=== PATIENT | female | born 1975 | race Caucasian/White ===

== ENCOUNTER 2016-12-22 22:06 | Emergency (ER) | payer SELFPAY ==
[~2016-12-22] VITALS: Ht 167.6 cm; Wt 71.2 kg
[2016-12-22 22:06] VITALS: BP 156/108; PULSE 87; RESP 16; TEMP 99.9; O2SAT 99
--- NOTE | 2016-12-22 22:06 | NUR ---
Placed in hallway. Report given to Kai TOPETE.
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
--- NOTE | 2016-12-22 22:18 | NUR ---
MD noble evaluating pt in the hallway
[2016-12-22 22:26] VITALS: BP 142/86; PULSE 86; RESP 17; TEMP 99.4; O2SAT 98
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
== END 2016-12-22 22:26 ==
LOC: SED 22:06
DX: Z02.89 Encounter for other administrative examinations (principal); S60.211A Contusion of right wrist, initial encounter; S60.212A Contusion of left wrist, initial encounter; F41.9 Anxiety disorder, unspecified; F32.9 Major depressive disorder, single episode, unspecified; Z90.710 Acquired absence of both cervix and uterus; Z98.890 Other specified postprocedural states; X58.XXXA Exposure to other specified factors, initial encounter; Y93.89 Activity, other specified; Y92.89 Other specified places as the place of occurrence of the external cause; Y99.8 Other external cause status
CPT/HCPCS: 99283

== ENCOUNTER 2017-06-03 12:34 | Inpatient (IN) | payer BC ==
[~2017-06-03] VITALS: Ht 167.6 cm; Wt 65.8 kg
[2017-06-03 12:45] VITALS: BP_SYST 118
[2017-06-03] MEDS ORDERED: ONDANSETRON HCL 4 MG/2 ML VIAL IVP ONE (13:15)
[2017-06-03] MEDS ORDERED: LORazepam 2 MG/ML VIAL (FOR ER USE) IVP ONE (13:15)
[2017-06-03 13:34] LABS: BASOPHILS % (AUTO) 0.7 % (0.0-2.0); EOSINOPHILS # (AUTO) 0.4 K/uL (0.0-0.4); EOSINOPHILS % (AUTO) 7.4 % (0.0-4.0); HEMATOCRIT 47.5 % (36-48); HEMOGLOBIN 15.5 g/dL (12.0-16.0); LYMPHOCYTES # (AUTO) 1.4 K/uL (1.0-5.5); LYMPHOCYTES % (AUTO) 23.2 % (20.5-51.5); MEAN CORPUSCULAR HEMOGLOBIN 32 pg (27-31); MEAN CORPUSCULAR HGB CONC 33 % (32-36); MEAN CORPUSCULAR VOLUME 98 fL (79.0-98.0); MONOCYTES # (AUTO) 0.4 K/uL (0.0-1.0); MONOCYTES % (AUTO) 6.1 % (1.7-9.3); NEUTROPHILS # (AUTO) 3.9 K/uL (1.8-7.7); NEUTROPHILS % (AUTO) 62.6 % (40.0-70.0); PLATELET COUNT (AUTO) 358 K/uL (130-430); RED BLOOD CELL COUNT(AUTO) 4.87 MIL/uL (4.2-6.2); RED CELL DISTRIBUTION WIDTH 13.7 % (9.0-15.0); WHITE BLOOD COUNT (AUTO) 6.1 K/uL (4.8-10.8)
[2017-06-03 13:47] LABS: CALCIUM 7.7 mg/dL (8.4-11.0); CREATININE 0.79 mg/dL (0.55-1.30); POTASSIUM 3.6 mmol/L (3.5-5.1)
[2017-06-03 13:52] LABS: ALBUMIN 3.9 g/dL (3.4-4.8); TOTAL BILIRUBIN 0.8 mg/dL (0.0-1.0)
[2017-06-03] MEDS ORDERED: MORPHINE 4 MG/ML INJ. SYRINGE IVP ONE (14:45)
[2017-06-03 15:47] LABS: BILIRUBIN,URINE NEGATIVE (NEGATIVE); CLARITY/URINE CLEAR (CLEAR); COLOR,URINE YELLOW (YELLOW); GLUCOSE,URINE NEGATIVE (NEGATIVE); KETONES,URINE NEGATIVE (NEGATIVE); LEUKOCYTE ESTERASE ,URINE NEGATIVE (NEGATIVE); NITRITE, URINE NEGATIVE (NEGATIVE); PROTEIN URINE NEGATIVE (NEGATIVE); UROBILINOGEN,URINE 0.2 (0.2-1.0)
[2017-06-03 16:04] LABS: BLOOD, URINE TRACE (NEGATIVE)
[2017-06-03 16:08] LABS: BACTERIA,URINE FEW /HPF (None Seen); WBC,URINE 0-3 /HPF (0-3)
[2017-06-03 16:10] LABS: BARBITURATE, URINE NEGATIVE (NEG <=200); BENZODIAZEPINE, URINE POSITIVE (NEG <=150); CANNABINOID, URINE NEGATIVE (NEG <=50); COCAINE, URINE NEGATIVE (NEG <=150); METHAMPHETAMINES SCREEN,URINE NEGATIVE (NEG <=500); OPIATE, URINE NEGATIVE (NEG <=100); PHENCYCLIDINE SCREEN,URINE NEGATIVE (NEG <=25); UR TRICYCLIC ANTIDEPRESSANTS NEGATIVE (NEG <=300); URINE AMPHETAMINE NEGATIVE (NEG <=500); URINE METHADONE NEGATIVE (NEG <=200); URINE OXYCODONE SCREEN NEGATIVE (NEG <=100); URINE PROPOXYPHENE SCREEN NEGATIVE (NEG <=300)
[2017-06-03] MEDS ORDERED: LORA-259 PO (16:26)
[2017-06-03] MEDS ORDERED: ACETAMINOPHEN 325 MG TABLET PO PRN (16:45)
[2017-06-03] MEDS ORDERED: ONDANSETRON HCL 4 MG/2 ML VIAL IVP PRN (16:45)
[2017-06-03 17:21] LABS: FREE T4 (FREE THYROXINE) 0.9 ng/dL (0.6-1.6); PHOSPHORUS 3.1 mg/dL (2.7-4.5); THYROID STIMULATING HORMONE 0.95 uIu/mL (0.34-4.82)
[2017-06-03 17:22] VITALS: BP_SYST 147
[2017-06-03] MEDS ORDERED: FLU VACC QS 2017-18(36MOS+)/PF 0.5 ML/SYR SYRINGE I.M. PRN (17:45)
[2017-06-03] MEDS: LORazepam 1 MG TABLET PO SCH (17:51)
[2017-06-03] MEDS: NACL 0.9% 1,000 ML IV SCH (17:52)
[2017-06-03] MEDS: MORPHINE 2 MG/ML INJ. SYRINGE IVP PRN ×2 (17:52→21:46)
[2017-06-03 19:54] VITALS: BP_SYST 133
[2017-06-03] MEDS: DOCUSATE SODIUM 100 MG CAPSULE PO SCH (21:45)
[2017-06-03] MEDS ORDERED: SIMETHICONE 80 MG TAB.CHEW PO PRN (22:45)
[2017-06-03] MEDS ORDERED: ZOLPIDEM TARTRATE 5 MG TABLET PO PRN (22:45)
[2017-06-03] MEDS ORDERED: HYDROcodone/ACETAMIN 10-325 MG TAB PO PRN (22:45)
[2017-06-03] MEDS ORDERED: POTASSIUM CHLORIDE 20 MEQ TAB.PRT.SR PO PRN (22:45)
[2017-06-03] MEDS ORDERED: BISACODYL 10 MG/SUPPOSITORY RC PRN (22:45)
[2017-06-03] MEDS: LORazepam 2 MG/ML VIAL IVP PRN (23:07)
[2017-06-04] MEDS: LORazepam 1 MG TABLET PO SCH ×3 (00:45→16:45)
[2017-06-04 00:57] VITALS: BP_SYST 130
[2017-06-04 04:29] VITALS: BP_SYST 124
[2017-06-04 06:54] LABS: BASOPHILS % (AUTO) 0.5 % (0.0-2.0); EOSINOPHILS # (AUTO) 0.4 K/uL (0.0-0.4); EOSINOPHILS % (AUTO) 7.6 % (0.0-4.0); HEMATOCRIT 42.7 % (36-48); HEMOGLOBIN 14.6 g/dL (12.0-16.0); LYMPHOCYTES # (AUTO) 1.8 K/uL (1.0-5.5); MEAN CORPUSCULAR HEMOGLOBIN 33 pg (27-31); MEAN CORPUSCULAR HGB CONC 34 % (32-36); MEAN CORPUSCULAR VOLUME 98 fL (79.0-98.0); MONOCYTES # (AUTO) 0.3 K/uL (0.0-1.0); MONOCYTES % (AUTO) 6.5 % (1.7-9.3); NEUTROPHILS # (AUTO) 2.8 K/uL (1.8-7.7); NEUTROPHILS % (AUTO) 52.4 % (40.0-70.0); PLATELET COUNT (AUTO) 287 K/uL (130-430); RED BLOOD CELL COUNT(AUTO) 4.37 MIL/uL (4.2-6.2); RED CELL DISTRIBUTION WIDTH 13.4 % (9.0-15.0); WHITE BLOOD COUNT (AUTO) 5.3 K/uL (4.8-10.8)
[2017-06-04 07:18] LABS: ALBUMIN 3.4 g/dL (3.4-4.8); CREATININE 0.81 mg/dL (0.55-1.30); POTASSIUM 3.4 mmol/L (3.5-5.1); TOTAL BILIRUBIN 1.5 mg/dL (0.0-1.0)
[2017-06-04 07:55] VITALS: BP_SYST 133
[2017-06-04] MEDS: MORPHINE 2 MG/ML INJ. SYRINGE IVP PRN ×2 (08:02→14:26)
[2017-06-04] MEDS: DOCUSATE SODIUM 100 MG CAPSULE PO SCH ×2 (09:57→21:00)
[2017-06-04] MEDS: NACL 0.9% 1,000 ML IV SCH (09:59)
[2017-06-04 12:46] VITALS: BP_SYST 140
[2017-06-04 16:15] VITALS: BP_SYST 126
[2017-06-04] MEDS: LORazepam 2 MG/ML VIAL IVP PRN (21:54)
[2017-06-05 00:33] VITALS: BP_SYST 124
[2017-06-05] MEDS: LORazepam 1 MG TABLET PO SCH ×2 (00:45→08:45)
[2017-06-05 05:26] VITALS: BP_SYST 103
[2017-06-05 06:07] LABS: HEMOGLOBIN A1C 4.9 % (4.8-5.6)
[2017-06-05 08:00] VITALS: BP_SYST 116
[2017-06-05 08:06] LABS: T4 (THYROXINE) 7.2 ug/dL (4.5-12.0)
[2017-06-05] MEDS: DOCUSATE SODIUM 100 MG CAPSULE PO SCH (09:00)
[2017-06-05] MEDS ORDERED: POTASSIUM CHLORIDE 20 MEQ/PKT PACKET PO ONE (10:00)
[2017-06-05 10:31] VITALS: BP_SYST 116
== END 2017-06-05 11:25 | disposition home or self-care (01) | DRG 897 ==
LOC: SED 12:34 → STU 16:05
PROVIDERS: ADMIT Family Medicine; ATTEND Family Medicine
DX: F10.239 Alcohol dependence with withdrawal, unspecified (principal); E46 Unspecified protein-calorie malnutrition; R17 Unspecified jaundice; F32.9 Major depressive disorder, single episode, unspecified; F41.9 Anxiety disorder, unspecified; I10 Essential (primary) hypertension; Z87.442 Personal history of urinary calculi; Z68.23 Body mass index [BMI] 23.0-23.9, adult
CPT/HCPCS: 36415; 70450-TC; 80053; 80061; 80307; 81000-TC; 82150-TC; 83036; 83690-TC; 83735-TC; 83880; 84100-TC; 84436; 84439; 84443-TC; 84479; 85025; 93005; 96374; 96375; 99285; G0482; J2060; J2270; J2405; J7030; Q2037

== ENCOUNTER 2018-03-31 21:56 | Inpatient (IN) | payer BC ==
[~2018-03-31] VITALS: Ht 167.6 cm; Wt 74.8 kg
[~2018-03-31 21:56] MED LIST: LORA-259 PO
[2018-03-31 22:30] VITALS: BP_SYST 142
[2018-04-01] MEDS ORDERED: NACL 0.9% 1,000 ML IV ONE ×2 (00:10→06:40)
[2018-04-01] MEDS ORDERED: MORPHINE 4 MG/ML INJ. SYRINGE IVP ONE (00:15)
[2018-04-01] MEDS ORDERED: FOLIC ACID 1 MG, THIAMINE HCL 100 MG, MAGNESIUM SULFATE 1 GM, MVI 10 ML in NACL 0.9% 1,... IV ONE (00:15)
[2018-04-01] MEDS ORDERED: PANTOPRAZOLE SODIUM 40 MG/VIAL (PROTONIX) IVP ONE (00:15)
[2018-04-01] MEDS ORDERED: LORazepam 2 MG/ML VIAL (FOR ER USE) IVP ONE ×3 (00:15→06:45)
[2018-04-01] MEDS ORDERED: ONDANSETRON HCL 4 MG/2 ML VIAL IVP ONE ×2 (00:15→02:45)
[2018-04-01] MEDS ORDERED: MVI 10 ML VIAL IV ONE (00:28)
[2018-04-01] MEDS ORDERED: MAGNESIUM SULFATE 1 GM/2 ML VIAL ONE (00:28)
[2018-04-01] MEDS ORDERED: THIAMINE HCL 100 MG/ML VIAL ONE (00:28)
[2018-04-01] MEDS ORDERED: FOLIC ACID 5 MG/ML VIAL IV ONE (00:28)
[2018-04-01 01:01] LABS: BASOPHILS % (AUTO) 0.6 % (0.0-2.0); EOSINOPHILS # (AUTO) 0.2 K/uL (0.0-0.4); EOSINOPHILS % (AUTO) 2.9 % (0.0-4.0); HEMATOCRIT 45.5 % (36-48); HEMOGLOBIN 15.4 g/dL (12.0-16.0); LYMPHOCYTES # (AUTO) 1.7 K/uL (1.0-5.5); LYMPHOCYTES % (AUTO) 21.2 % (20.5-51.5); MEAN CORPUSCULAR HEMOGLOBIN 32 pg (27-31); MEAN CORPUSCULAR HGB CONC 34 % (32-36); MEAN CORPUSCULAR VOLUME 95 fL (79.0-98.0); MONOCYTES # (AUTO) 0.4 K/uL (0.0-1.0); MONOCYTES % (AUTO) 5.1 % (1.7-9.3); NEUTROPHILS # (AUTO) 5.8 K/uL (1.8-7.7); NEUTROPHILS % (AUTO) 70.2 % (40.0-70.0); PLATELET COUNT (AUTO) 356 K/uL (130-430); RED CELL DISTRIBUTION WIDTH 11.5 % (9.0-15.0); WHITE BLOOD COUNT (AUTO) 8.1 K/uL (4.8-10.8)
[2018-04-01 01:13] LABS: CALCIUM 8.6 mg/dL (8.4-11.0); CREATININE 0.81 mg/dL (0.55-1.30); POTASSIUM 3.2 mmol/L (3.5-5.1)
[2018-04-01 01:14] LABS: INR 0.9 (0.8-1.2); PROTHROMBIN TIME 9.5 SECS (9.5-12.5)
[2018-04-01 01:19] LABS: ALBUMIN 4.1 g/dL (3.4-4.8)
[2018-04-01 02:00] LABS: BILIRUBIN,URINE NEGATIVE (NEGATIVE); BLOOD, URINE NEGATIVE (NEGATIVE); CLARITY/URINE CLEAR (CLEAR); COLOR,URINE YELLOW (YELLOW); GLUCOSE,URINE NEGATIVE (NEGATIVE); KETONES,URINE NEGATIVE (NEGATIVE); LEUKOCYTE ESTERASE ,URINE NEGATIVE (NEGATIVE); NITRITE, URINE NEGATIVE (NEGATIVE); PH,URINE 7.5 (5.0-8.0); PROTEIN URINE NEGATIVE (NEGATIVE); UROBILINOGEN,URINE 0.2 (0.2-1.0)
[2018-04-01 02:11] LABS: BARBITURATE, URINE NEGATIVE (NEG <=200); BENZODIAZEPINE, URINE NEGATIVE (NEG <=150); CANNABINOID, URINE NEGATIVE (NEG <=50); COCAINE, URINE NEGATIVE (NEG <=150); METHAMPHETAMINES SCREEN,URINE NEGATIVE (NEG <=500); OPIATE, URINE POSITIVE (NEG <=100); PHENCYCLIDINE SCREEN,URINE NEGATIVE (NEG <=25); UR TRICYCLIC ANTIDEPRESSANTS NEGATIVE (NEG <=300); URINE AMPHETAMINE NEGATIVE (NEG <=500); URINE METHADONE NEGATIVE (NEG <=200); URINE OXYCODONE SCREEN NEGATIVE (NEG <=100); URINE PROPOXYPHENE SCREEN NEGATIVE (NEG <=300)
[2018-04-01] MEDS ORDERED: chlordiazePOXIDE HCL 25 MG CAPSULE PO ONE ×2 (02:45)
[2018-04-01] MEDS ORDERED: MORPHINE 2 MG/ML INJ. SYRINGE IVP ONE (02:45)
[2018-04-01] MEDS ORDERED: METOCLOPRAMIDE HCL 10 MG/2 ML VIAL IVP ONE (04:15)
[2018-04-01] MEDS ORDERED: MAG HYDROX/AL HYDROX/SIMETH 30 ML, BELLADONNA ALKALOIDS/PHENOBARB 10 ML, LIDOCAINE VISC... PO ONE ×3 (05:30)
[2018-04-01] MEDS ORDERED: HYDROmorphone 1 MG INJ. 1 MG/ML AMPUL IVP ONE (05:30)
[2018-04-01] MEDS ORDERED: DIPH25CA83 PO (07:18)
[2018-04-01] MEDS ORDERED: KCL 20 mEq in 100 mL (PREMIX) 100 ML IV ONE (07:30)
[2018-04-01] MEDS ORDERED: MORPHINE 2 MG/ML INJ. SYRINGE IVP PRN (07:45)
[2018-04-01] MEDS ORDERED: ONDANSETRON HCL 4 MG/2 ML VIAL IVP PRN (07:45)
[2018-04-01] MEDS ORDERED: METOCLOPRAMIDE HCL 10 MG/2 ML VIAL IVP PRN (07:45)
[2018-04-01] MEDS ORDERED: LORazepam 2 MG/ML VIAL IVP PRN (07:45)
[2018-04-01] MEDS ORDERED: MORPHINE 4 MG/ML INJ. SYRINGE IVP PRN (07:45)
[2018-04-01 07:46] VITALS: BP_SYST 127
[2018-04-01 08:00] VITALS: BP_SYST 127
[2018-04-01] MEDS: chlordiazePOXIDE HCL 25 MG CAPSULE PO SCH ×3 (09:21→21:44)
[2018-04-01] MEDS: D5NS 1,000 ML IV SCH ×2 (09:25→15:44)
[2018-04-01] MEDS: BANANA BAG 1 EA, FOLIC ACID 1 MG, THIAMINE HCL 100 MG, MAGNESIUM SULFATE 1 GM, MVI 10 M... IV SCH ×5 (11:08)
[2018-04-01 12:00] VITALS: BP_SYST 110
[2018-04-01 16:58] VITALS: BP_SYST 121
[2018-04-01 20:00] VITALS: BP_SYST 124
[2018-04-02] VITALS: BP_SYST 125
[2018-04-02] MEDS: D5NS 1,000 ML IV SCH ×2 (02:01→08:45)
[2018-04-02 05:27] VITALS: BP_SYST 95
[2018-04-02 07:18] LABS: BASOPHILS # (AUTO) 0.1 K/uL (0.0-0.2); BASOPHILS % (AUTO) 1.5 % (0.0-2.0); EOSINOPHILS # (AUTO) 0.3 K/uL (0.0-0.4); EOSINOPHILS % (AUTO) 4.8 % (0.0-4.0); HEMATOCRIT 37.9 % (36-48); HEMOGLOBIN 13.1 g/dL (12.0-16.0); LYMPHOCYTES # (AUTO) 1.8 K/uL (1.0-5.5); LYMPHOCYTES % (AUTO) 32.2 % (20.5-51.5); MEAN CORPUSCULAR HEMOGLOBIN 33 pg (27-31); MEAN CORPUSCULAR HGB CONC 35 % (32-36); MEAN CORPUSCULAR VOLUME 97 fL (79.0-98.0); MONOCYTES # (AUTO) 0.3 K/uL (0.0-1.0); MONOCYTES % (AUTO) 5.7 % (1.7-9.3); NEUTROPHILS # (AUTO) 3.1 K/uL (1.8-7.7); NEUTROPHILS % (AUTO) 55.8 % (40.0-70.0); PLATELET COUNT (AUTO) 247 K/uL (130-430); RED BLOOD CELL COUNT(AUTO) 3.93 MIL/uL (4.2-6.2); RED CELL DISTRIBUTION WIDTH 11.4 % (9.0-15.0); WHITE BLOOD COUNT (AUTO) 5.6 K/uL (4.8-10.8)
[2018-04-02 07:39] LABS: ALBUMIN 2.8 g/dL (3.4-4.8); CALCIUM 7.8 mg/dL (8.4-11.0); CREATININE 0.67 mg/dL (0.55-1.30); POTASSIUM 3.4 mmol/L (3.5-5.1); TOTAL BILIRUBIN 1.4 mg/dL (0.0-1.0)
[2018-04-02 08:00] VITALS: BP_SYST 131
[2018-04-02] MEDS: chlordiazePOXIDE HCL 25 MG CAPSULE PO SCH (09:39)
[2018-04-02] MEDS: BANANA BAG 1 EA, FOLIC ACID 1 MG, THIAMINE HCL 100 MG, MAGNESIUM SULFATE 1 GM, MVI 10 M... IV SCH ×5 (11:00)
== END 2018-04-02 14:00 | disposition left against medical advice (07) | DRG 894 ==
LOC: SED 21:56 → SMU 04-01 07:13
PROVIDERS: ADMIT Internal Medicine Hospice and Palliative Medicine; ATTEND Internal Medicine Hospice and Palliative Medicine
DX: F10.10 Alcohol abuse, uncomplicated (principal); F32.9 Major depressive disorder, single episode, unspecified; F41.9 Anxiety disorder, unspecified; I10 Essential (primary) hypertension; K70.30 Alcoholic cirrhosis of liver without ascites; Z90.710 Acquired absence of both cervix and uterus; Z81.1 Family history of alcohol abuse and dependence; Z88.2 Allergy status to sulfonamides; Z53.21 Procedure and treatment not carried out due to patient leaving prior to being seen by health care provider
CPT/HCPCS: 36415; 80053; 80307; 81003; 83690-TC; 85025; 85610-TC; 96365; 96366; 96375; 96376; 99285; C9113; J1170; J2001; J2060; J2270; J2405; J2765; J3411; J3475; J3490; J7030; J7042